=== PATIENT | female | born 1975 | race Caucasian/White ===

== ENCOUNTER 2020-11-28 11:53 | Emergency (ER) | payer OTHER, SELFPAY ==
--- NOTE | ~2020-11-28 | US_ITS ---
US abdomen limited INDICATION: Right upper quadrant abdominal pain PROCEDURE: Realtime right upper abdominal ultrasound. COMPARISON: No prior studies for comparison. FINDINGS: The pancreas is normal without focal mass or pancreatic ductal dilation. Liver echotexture is increased, consistent with fatty infiltration. There is normal directional flow in the portal ve in. The gallbladder is normal without stones, gallbladder wall thickening or pericholecystic fluid. Comm on bile duct measures 3.8 mm. No sonographic Bosch's sign. IMPRESSION: 1: Hepatic steatosis. Reviewed, dictated and finalized at location [facility]. IMPRESSION: 1: Hepatic steatosis.
--- NOTE | ~2020-11-28 | CT_ITS ---
EXAMINATION: CT abdomen pelvis w con DATE: 11/28/2020 15:22 INDICATION: Right upper quadrant abdominal pain radiating to back for 4 days TECHNIQUE: Computed tomography (CT) of the abdomen and pelvis was performed with 100 cc Omnipaque 350 intravenous contrast. Automated exposure control and iterative reconstruction technique were employe d. Exam dose: 577.63 mGy-cm total exam DLP. COMPARISON: 11/28/2020 Limited abdominal ultrasound examination FINDINGS: The lung bases are clear. Normal heart size. No pericardial or pleural effusion. The liver, spleen, pancreas, gallbladder, bile ducts and pancreatic duct are unremarkable. Normal morphology of the adrenal glands. No renal mass lesion or urinary tract calculus or hydroureteronephrosis. The urinary bladder is unrem arkable. Moderately enlarged probable fibroid uterus. Normal caliber of the abdominal aorta. No intraperitoneal or retroperitoneal or pelvic mass lesion or adenopathy or ascites. No bowel obstruction, bowel wall thickening, pneumatosis or intraperitoneal free air. Included skeletal structures are unremarkable, without suspicious osteolytic or osteoblastic lesion. IMPRESSION: No significant abnormality Reviewed, dictated and finalized at [facility]. Reviewed, dictated and finalized at location [facility]. IMPRESSION: No significant abnormality
[2020-11-28 11:59] VITALS: BP 155/87; PULSE 76; RESP 18; TEMP 36.6; O2SAT 100
--- NOTE | 2020-11-28 12:11 | ED.ABDPAIN ---
HPI - Abdominal Pain General Chief Complaint: Abdominal Pain Stated Complaint: abd pain Time Seen by Provider: 11/28/20 12:00 History of Present Illness HPI narrative: RUQ pain for the past 4 days. Intermittent. Worse with certain movements and positions. Associated with mild nausea. No association with eating. She has never had this pain in the past. She has not tried anything for the pain. No previous abdominal surgeries. Related Data Allergies Allergy/AdvReac Type Severity Reaction Status Date / Time No Known Allergies Allergy Verified 11/28/20 13:02 Review of Systems Review of Systems: All systems reviewed & are unremarkable except as noted in HPI and below Constitutional: Constitutional: Denies chills and Denies fever(s) Eyes: Eyes: Reports no additional eye complaints ENT: Denies sore throat Cardiovascular: Cardiovascular: Denies chest pain Respiratory: Respiratory: Denies dyspnea Gastrointestinal: Gastrointestinal: Reports as per HPI, Denies constipation, Denies diarrhea and Denies vomiting Genitourinary: Genitourinary: Denies hematuria, Denies nocturia and Denies dysuria Neurologic: Denies confusion, Denies dizziness and Denies weakness [facility] Social History Social History (Updated 11/28/20 @ 13:44 by Roge Romero MD) Smoking status: Never smoker Substance use: never Living arrangements: with family Gender identity (if verbalized by the patient): Female Exam Const: General: healthy appearing, no acute distress and alert Orientation/consciousness: patient oriented x3 HENMT: Head: normal to inspection Resp: Effort & Inspection: normal respiratory effort Auscultation: clear to auscultation bilaterally, no rales, no rhonchi and no wheezes Cardio: Jugular venous distension: no JVD Rate: regular rate Rhythm: regular rhythm Heart sounds: no murmurs GI: Inspection: non-distended GI Palp: Yes Soft to palpation, Yes Tenderness to palpation present (GI) (mild, RUQ), No Guarding due to palpation present (GI) and No Rebound tenderness present Auscultation: normal bowel sounds Skin: General skin exam: normal color Neuro: General: patient oriented x3 and moves all extremities Speech: normal speech Extrem: General: no edema Psych: Appearance: well kempt Affect: normal affect Course Vital Signs Vital signs: Vital Signs Temperature 36.6 C 11/28/20 11:59 Pulse Rate 76 11/28/20 11:59 Respiratory Rate 18 11/28/20 11:59 Blood Pressure 155/87 H 11/28/20 11:59 Pulse Oximetry 100 11/28/20 11:59 Temperature 36.6 C 11/28/20 11:59 Pulse Rate 75 11/28/20 16:13 Respiratory Rate 18 11/28/20 16:13 Blood Pressure 128/80 11/28/20 16:13 Pulse Oximetry 98 11/28/20 16:13 MDM - Abdominal Pain MDM Narrative Medical decision making narrative: CT and US negative for any cause of her pain. Most likely GERD/gastritis Differential Diagnosis Differential diagnosis: Likely calculus of kidney, constipation, diverticulitis, pancreatitis and other (cholecystitis) Medical Records Attestation: I reviewed the patient's medical records. Lab Data Attestation: I reviewed the patient's lab results. Result diagrams: 11/28/20 12:09 11/28/20 12:09 Labs: Lab Results 11/28/20 11/28/20 11/28/20 Range/Units 12:09 12:09 12:09 WBC 8.6 (4.5-10.0) K/mm3 RBC 5.02 (4.2-5.4) M/mm3 Hgb 13.6 (12.0-15.0) g/dL Hct 42.0 (37.0-47.0) % MCV 83.7 (80-100) fl MCH 27.1 (26-34) pg MCHC 32.4 (32-36) g/dl RDW 14.6 H (11.5-14.5) % Plt Count 345 (150-375) k/mm3 MPV 9.9 (7.4-10.4) fl Immature Gran % (Auto) 0.5 (0-0.5) % Neut % (Auto) 52.6 (45.5-73.1) % Lymph % (Auto) 36.5 (18.3-44.2) % [place] % (Auto) 8.0 (2.6-8.5) % Eos % (Auto) 1.9 (0-4.4) % Baso % (Auto) 0.5 (0.2-1.2) % Lymph # (Auto) 3.14 (0.9-3.2) K/mm3 [place] # (Auto) 0.7 H (0.1-0.6) K/mm3 Eos # (Auto) 0.2 (0-0.3) K/m
[2020-11-28 12:15] LABS: Basophils Percent Auto 0.5 % (0.2-1.2); Eosinophils Absolute Auto 0.2 K/mm3 (0-0.3); Eosinophils Percent Auto 1.9 % (0-4.4); Hemoglobin 13.6 g/dL (12.0-15.0); Immature Granulocyte Absolute 0.04 K/mm3 (0.00-0.031); Immature Granulocyte Percent A 0.5 % (0-0.5); Lymphocytes Absolute Auto 3.14 K/mm3 (0.9-3.2); Lymphocytes Percent Auto 36.5 % (18.3-44.2); Mean Corpuscular HGB Conc 32.4 g/dl (32-36); Mean Corpuscular Hemoglobin 27.1 pg (26-34); Mean Corpuscular Volume 83.7 fl (80-100); Mean Platelet Volume 9.9 fl (7.4-10.4); Monocytes Absolute Auto 0.7 K/mm3 (0.1-0.6); Neutrophils Absolute Auto 4.5 K/mm3 (1.3-6.7); Neutrophils Percent Auto 52.6 % (45.5-73.1); Platelet Count Result 345 k/mm3 (150-375); Red Blood Count 5.02 M/mm3 (4.2-5.4); Red Cell Distribution Width 14.6 % (11.5-14.5); White Blood Count 8.6 K/mm3 (4.5-10.0)
[2020-11-28 12:17] LABS: Add Urine Microscopic? NO; Appearance Urine Clear (Clear); Bilirubin Urine Negative (Negative); Blood Urine Negative (Negative); Color Urine Yellow (Yellow); Glucose Urine UA Negative (Negative); Ketones Urine Negative (Negative); Leukocyte Esterase Ur Negative LEU/UL (Negative); Nitrate Urine Negative (Negative); Protein Urine Negative (Negative); Urobilinogen Urine Negative mg/dL (<2.0)
[2020-11-28 12:24] LABS: Alanine Aminotransferase 32 U/L (4-35); Albumin Level 4.4 g/dL (3.5-5.1); Alkaline Phosphatase 77 U/L (38-126); Anion Gap 10 mmol/L (8-16); Aspartate Amino Transferase 38 U/L (14-36); Bilirubin,Total 0.4 mg/dL (0.2-1.3); Blood Urea Nitrogen 8 mg/dL (7-17); Calcium 9.2 mg/dL (8.4-10.2); Carbon Dioxide 22 mmol/L (22-30); Chloride 108 mmol/L (98-107); Estimated CRCL calculation 94 ml/min; Estimated Glomerular Filt Rate > 60; Glucose 91 mg/dL (65-105); Lipase 83 U/L (23-300); Potassium 3.9 mmol/L (3.4-5.0); Sodium 140 mmol/L (137-145)
[2020-11-28] MEDS: PANTOPRAZOLE SODIUM IV 40 MG VIAL IV PUSH (12:54)
[2020-11-28 14:24] VITALS: BP 125/71; PULSE 62; RESP 16; O2SAT 100
[2020-11-28 16:03] VITALS: BP 128/80; PULSE 70; RESP 16; O2SAT 100
[2020-11-28 16:13] VITALS: BP 128/80; PULSE 75; RESP 18; O2SAT 98
== END 2020-11-28 16:14 | disposition home or self-care (01) ==
PROVIDERS: Emergency Medicine; Emergency Provider Emergency Medicine
DX: R10.11 Right upper quadrant pain (principal); K76.0 Fatty (change of) liver, not elsewhere classified
CPT/HCPCS: 36415; 74177; 76705; 80053; 81003; 81025; 83690; 85025; 96374; 99284; A9270; C9113; Q9967

== ENCOUNTER 2021-01-21 01:46 | Day surgery (SDC) | payer OTHER, SELFPAY ==
--- NOTE | 2021-01-21 09:04 | WPDGICN ---
Assessment and Plan Assessment and plan (1) Epigastric pain: Code(s): R10.13 - Epigastric pain Status: Acute Assessment and Plan: Patient with epigastric and right upper quadrant pain. Ultrasound CT scan are unremarkable. She has had some improvement with acid suppression suggesting this is dyspepsia. Plan for EGD to evaluate more thoroughly. Continuing omeprazole 20mg p.o. daily until this can be accomplished is advised. (2) Hepatic steatosis: Code(s): K76.0 - Fatty (change of) liver, not elsewhere classified Status: Acute Assessment and Plan: Likely related to body habitus. Weight loss and low-cholesterol diet advised. GI Consult Note Consult date/time: 01/21/21 09:04 HPI: Gina Page is a 45 year old female Presents for evaluation of epigastric and right upper quadrant pain. Patient developed severe sharp pain in the epigastric and right upper quadrant prompting her to go to the ER in 11/28/2020. She states that is though an arrow [place] is her side. It is rather constant but sharp. May fluctuate in intensity. In the ER and ultrasound and CT scan were unremarkable aside from a fatty liver. Patient was initially placed on Pepcid with only mild improvement of symptoms. Subsequently she was changed to omeprazole 20mg p.o. daily with significant improvement in pain. She presents today for EGD to evaluate more thoroughly. She did notice some darkening of her stools during this interval of time. No evidence of bleeding was described however. Family history is noncontributory. Review of Systems Review of Systems: All systems reviewed & are unremarkable except as noted in HPI and below PMFSH Past Medical History Medical History (Updated 12/19/20 @ 10:02 by Makeda Jimenez NP) Abnormal MRI of head Anxiety Encounter to establish care Epigastric pain Hepatic steatosis Seasonal allergies Surgical History Surgical History (Updated 12/19/20 @ 09:08 by Heriberto Rossi CMA) Hx of foot surgery Right tendon re-attached Family History Family History (Updated 12/19/20 @ 09:07 by Heriberto Rossi CMA) Father Diabetes mellitus Heart disease Social History Social History (Updated 12/19/20 @ 09:07 by Heriberto Rossi CMA) Smoking status: Never smoker Alcohol intake: current Drinks per week: 10 Substance use: never Substance use type: does not use Living arrangements: with family Gender identity (if verbalized by the patient): Female Spiritual care concerns: No Meds Home Medications and Allergies Home Medications Medication Instructions Recorded Confirmed Type buspirone 15 mg tablet 15 mg PO DAILY PRN tablet 12/19/20 01/15/21 History duloxetine 60 mg capsule,delayed 60 mg PO DAILY 12/19/20 01/15/21 History release multivitamin 1 tablet PO DAILY 12/19/20 01/15/21 History omeprazole 40 mg capsule,delayed 40 mg PO DAILY #30 cap 12/19/20 01/15/21 Rx release Allergies Allergy/AdvReac Type Severity Reaction Status Date / Time No Known Allergies Allergy Verified 01/21/21 09:06 Exam Narrative: Physical exam reveals patient to be alert. Vital signs are stable. HEENT exam is unremarkable. Patient is anicteric. Lungs are clear to auscultation and percussion. Heart is without murmur or extra sounds. Abdominal exam bowel sounds are present soft nontender with no organomegaly.
--- NOTE | 2021-01-21 09:05 | WPDANESEPPF ---
Anes - Initial Pre Proc Eval Procedure: Operation Date: 01/21/21 10:00 Proposed Procedures p Esophagogastroduodenoscopy - Jonathan Crandall MD Date/Time: 01/21/21 09:05 Surgeon: Jonathan Crandall MD Pre Op Diagnosis: epigastric pain, melena Patient Data Age: 45 Gender: F Height: 1.75 m Weight: 92.3 kg Allergies Allergy/AdvReac Type Severity Reaction Status Date / Time No Known Allergies Allergy Verified 01/15/21 14:06 Home Medications Medication Instructions Recorded Confirmed Type buspirone 15 mg tablet 15 mg PO DAILY PRN tablet 12/19/20 01/15/21 History duloxetine 60 mg capsule,delayed 60 mg PO DAILY 12/19/20 01/15/21 History release multivitamin 1 tablet PO DAILY 12/19/20 01/15/21 History omeprazole 40 mg capsule,delayed 40 mg PO DAILY #30 cap 12/19/20 01/15/21 Rx release Patient hx anesthesia problems: none Family hx anesthesia problems: none PMFSH Past Medical History Medical History Abnormal MRI of head Anxiety Encounter to establish care Epigastric pain Hepatic steatosis Seasonal allergies Surgical History Surgical History Hx of foot surgery Right tendon re-attached Family History Family History Father Diabetes mellitus Heart disease Social History Social History Smoking status: Never smoker Alcohol intake: current Drinks per week: 10 Substance use: never Substance use type: does not use Living arrangements: with family Gender identity (if verbalized by the patient): Female Spiritual care concerns: No Anes - Eval Final PreProcedure Day of Procedure 01/21/21 09:05 Patient weight: obese Heart: regular rate and rhythm Lungs: clear to auscultation Airway: Mallampati scale class II Neurological: alert and oriented Last oral intake: >/= 8 hours ASA classification: II Emergent: no Anesthetic plan: proceed Anesthesia type and monitoring: general LMA and standard monitoring Informed Consent: The patient's anesthetic plan and its attendant risks and benefits were discussed with the patient/family/POA. Questions were solicited and answers provided to the satisfaction of the patient/family/POA.
[2021-01-21 09:07] VITALS: BP 120/80; PULSE 69; RESP 16; TEMP 36.4; O2SAT 98; BMI 30.6
[2021-01-21] MEDS: LACTATED RINGERS 1,000 ML 150 ML IV CONT (09:11)
[2021-01-21] MEDS: BENZOCAINE (*SP) 60 ML SPRAY CAN (HURRICAINE) 1 SPRAY MUCOUS MEM (09:17)
[2021-01-21] MEDS: SIMETHICONE ORAL SUSPENSION 20 MG/0.3 ML 30 ML BOTTLE 0.6 ML IRRIGATION (09:25)
[2021-01-21 09:35] VITALS: BP 111/71; PULSE 75; RESP 16; O2SAT 100
[2021-01-21 09:45] VITALS: BP 114/71; PULSE 68; RESP 16; O2SAT 100
[2021-01-21 09:55] VITALS: BP 120/81; PULSE 65; RESP 16; O2SAT 100
== END 2021-01-21 10:12 | disposition home or self-care (01) ==
PROVIDERS: PCP Nurse Practitioner Family; Visit Provider Internal Medicine Gastroenterology
PROC: 0DJ08ZZ Inspection of Upper Intestinal Tract, Via Natural or Artificial Opening Endoscopic (ICD-10-PCS; CPT 43235; principal; 2021-01-21 10:00)
DX: R10.13 Epigastric pain (principal); K76.0 Fatty (change of) liver, not elsewhere classified; F41.9 Anxiety disorder, unspecified
CPT/HCPCS: 43239; 87081; J2704; J7120